=== PATIENT | female | born 1955 | race Caucasian/White ===

== ENCOUNTER → 2016-12-17 | Outpatient (CLI) | payer MEDICARE, MEDICAID ==
[~2016-12-17] MED LIST: ADAL40PE INJ; ADAL40PE SC; CALC500T47 PO; CELE200C PO; CHOL500015 PO; ENOX40SY4 SQ; ETAN50PE SQ; FOLI-17 PO; HYDR-3144 PO; HYDR-3241 PO; METH2.5T PO; METHOT; METO25TA35 PO; PARO30TA3 PO; [UNRECOGNIZED DRUG - REMARK]
== END | disposition home or self-care (01) ==
LOC: CFH 07:18
PROVIDERS: ATTEND Internal Medicine Cardiovascular Disease
DX: I35.1 Nonrheumatic aortic (valve) insufficiency (principal)
CPT/HCPCS: 93306

== ENCOUNTER 2017-03-04 15:04 | Emergency (ER) | payer MEDICARE, MEDICAID ==
[~2017-03-04] VITALS: Ht 162.6 cm; Wt 67.0 kg
[2017-03-04] MEDS ORDERED: CELE200C PO (15:18)
[2017-03-04] MEDS ORDERED: HYDROcodone/APAP 5/325 TABLET ONE (15:51)
[2017-03-04] MEDS ORDERED: HYDROcodone/APAP 5/325 TABLET PO ONE (16:00)
[2017-03-04 17:05] VITALS: BP 132/68
== END 2017-03-04 17:08 | disposition home or self-care (01) ==
LOC: ED 15:28
DX: S89.91XA Unspecified injury of right lower leg, initial encounter (principal); W19.XXXA Unspecified fall, initial encounter; Y93.89 Activity, other specified; Y92.89 Other specified places as the place of occurrence of the external cause; Y99.9 Unspecified external cause status
CPT/HCPCS: 99284

== ENCOUNTER 2017-04-03 18:26 | Inpatient (IN) | payer MEDICARE, MEDICAID ==
[~2017-04-03] VITALS: Ht 162.6 cm; Wt 66.8 kg
[~2017-04-03 18:26] MED LIST changes: -CALC500T47 PO; +CALC500T51 PO; -HYDR-3144 PO; +HYDR-3245 PO
[2017-04-03] MEDS ORDERED: SODIUM CHLORIDE FLUSH 10ML SYR IVF ONE (19:30)
[2017-04-03] MEDS ORDERED: SODIUM CHLORIDE 0.9% 1,000ML IVBOLUS ONE (19:30)
[2017-04-03] MEDS ORDERED: MORPHINE SULFATE 4 MG/ML, 1ML ONE (19:46)
[2017-04-03] MEDS ORDERED: ONDANSETRON 2MG/ML, 2ML ONE (19:46)
[2017-04-03] MEDS ORDERED: OXYcodone/APAP 5/325MG TABLET ONE (19:54)
[2017-04-03] MEDS ORDERED: ONDANSETRON 2MG/ML, 2ML IVPush ONE (20:00)
[2017-04-03] MEDS ORDERED: MORPHINE SULFATE 4 MG/ML, 1ML IVPush ONE (20:00)
[2017-04-03 20:17] LABS: BLOOD UREA NITROGEN 17 mg/dL (7-18)
[2017-04-03 20:18] LABS: HEMATOCRIT 41.7 % (34.6-47.8); WHITE BLOOD COUNT 8.2 x10^3/uL (3.4-10)
[2017-04-03] MEDS ORDERED: OXYcodone/APAP 5/325MG TABLET PO ONE (20:30)
[2017-04-03] MEDS ORDERED: PARO40TA3 PO (20:44)
[2017-04-03] MEDS ORDERED: ONDANSETRON 2MG/ML, 2ML IVPush PRN (22:00)
[2017-04-03 23:51] VITALS: BP 101/65
[2017-04-04] MEDS: ENOXAPARIN 40 MG/0.4 ML SQ SCH ×2 (00:27→06:00)
[2017-04-04] MEDS: OXYcodone/APAP 5/325MG TABLET PO PRN ×4 (00:27→21:33)
[2017-04-04 02:33] VITALS: BP 102/61
[2017-04-04 07:00] VITALS: BP 115/62
[2017-04-04] MEDS: PAROXETINE 20 MG TABLET PO SCH (08:14)
[2017-04-04] MEDS: CALCIUM CARBONATE 500 MG TABLET PO SCH (08:14)
[2017-04-04 13:30] VITALS: BP 112/62
[2017-04-04 21:24] VITALS: BP 123/82
[2017-04-05] MEDS: KETOROLAC 30 MG/1 ML IVPush PRN ×3 (01:19→21:24)
[2017-04-05 03:02] VITALS: BP 106/57
[2017-04-05] MEDS: OXYcodone/APAP 5/325MG TABLET PO PRN ×3 (05:40→16:27)
[2017-04-05] MEDS: ENOXAPARIN 40 MG/0.4 ML SQ SCH (05:40)
[2017-04-05 06:55] VITALS: BP 111/64
[2017-04-05] MEDS: PAROXETINE 20 MG TABLET PO SCH (08:49)
[2017-04-05] MEDS: CALCIUM CARBONATE 500 MG TABLET PO SCH (08:49)
[2017-04-05 14:53] VITALS: BP 81/51
[2017-04-05 15:54] VITALS: BP 88/53
[2017-04-05] MEDS: SODIUM CHLORIDE 0.9% 1,000 ML IV SCH (16:26)
[2017-04-05 19:10] VITALS: BP 90/53
[2017-04-06 02:10] VITALS: BP 122/78
[2017-04-06] MEDS: ACETAMINOPHEN 325 MG TABLET PO PRN (02:22)
[2017-04-06] MEDS: SODIUM CHLORIDE 0.9% 1,000 ML IV SCH ×3 (02:24→23:50)
[2017-04-06] MEDS ORDERED: ZOLPIDEM 10MG TABLET PO PRN (02:30)
[2017-04-06] MEDS: ENOXAPARIN 40 MG/0.4 ML SQ SCH (05:27)
[2017-04-06] MEDS: KETOROLAC 30 MG/1 ML IVPush PRN (05:27)
[2017-04-06] MEDS ORDERED: LEVOTHYROXINE 125 MCG TABLET PO SCH (06:00)
[2017-04-06 06:48] VITALS: BP 127/64
[2017-04-06] MEDS ORDERED: OMEPRAZOLE 20 MG CAPSULE.DR PO SCH (07:30)
[2017-04-06 08:35] LABS: BLOOD UREA NITROGEN 15 mg/dL (7-18)
[2017-04-06 08:50] LABS: HEMATOCRIT 35.5 % (34.6-47.8); HEMOGLOBIN 11.9 g/dL (11.7-16.4); WHITE BLOOD COUNT 7.1 x10^3/uL (3.4-10)
[2017-04-06] MEDS ORDERED: FUROSEMIDE 40 MG TABLET PO SCH (09:00)
[2017-04-06] MEDS ORDERED: LISINOPRIL 10 MG TABLET PO SCH (09:00)
[2017-04-06] MEDS: CALCIUM CARBONATE 500 MG TABLET PO SCH (09:08)
[2017-04-06] MEDS: PAROXETINE 20 MG TABLET PO SCH (09:08)
[2017-04-06] MEDS: OXYcodone/APAP 5/325MG TABLET PO PRN ×3 (09:46→21:07)
[2017-04-06 12:32] VITALS: BP 93/60
[2017-04-06] MEDS ORDERED: POLYETHYLENE GLYCOL 17 GM PACKET PO PRN (13:00)
[2017-04-06] MEDS: DOCUSATE 100 MG CAPSULE PO SCH (14:43)
[2017-04-06 19:15] VITALS: BP 115/76
[2017-04-06] MEDS ORDERED: LOVASTATIN 40 MG TABLET PO SCH (21:00)
[2017-04-07] MEDS: OXYcodone/APAP 5/325MG TABLET PO PRN ×5 (01:06→19:39)
[2017-04-07 01:37] VITALS: BP 129/70
[2017-04-07] MEDS: ENOXAPARIN 40 MG/0.4 ML SQ SCH (05:07)
[2017-04-07 08:00] VITALS: BP 120/71
[2017-04-07] MEDS: DOCUSATE 100 MG CAPSULE PO SCH (10:12)
[2017-04-07] MEDS: CALCIUM CARBONATE 500 MG TABLET PO SCH (10:13)
[2017-04-07] MEDS: PAROXETINE 20 MG TABLET PO SCH (10:13)
[2017-04-07 14:00] VITALS: BP 96/60
[2017-04-07 19:00] VITALS: BP 97/60
[2017-04-07] MEDS: HYDROCORTISONE CRM 1%, 30GM TP SCH (19:39)
[2017-04-07] MEDS ORDERED: HYDROCORTISONE CRM 1%, 30GM TP SCH (21:00)
[2017-04-07] MEDS: TEMAZEPAM 15 MG CAPSULE PO PRN (22:47)
[2017-04-08] MEDS: OXYcodone/APAP 5/325MG TABLET PO PRN ×3 (00:32→22:04)
[2017-04-08 00:40] VITALS: BP 104/65
[2017-04-08] MEDS: KETOROLAC 30 MG/1 ML IVPush PRN (03:15)
[2017-04-08 06:29] VITALS: BP 101/55
[2017-04-08] MEDS: CALCIUM CARBONATE 500 MG TABLET PO SCH (07:55)
[2017-04-08] MEDS: DOCUSATE 100 MG CAPSULE PO SCH (07:55)
[2017-04-08] MEDS: ENOXAPARIN 40 MG/0.4 ML SQ SCH (07:55)
[2017-04-08] MEDS: HYDROCORTISONE CRM 1%, 30GM TP SCH ×2 (07:56→22:04)
[2017-04-08] MEDS: PAROXETINE 20 MG TABLET PO SCH (07:56)
[2017-04-08 14:15] VITALS: BP 91/55
[2017-04-08 19:05] VITALS: BP 108/56
[2017-04-08] MEDS: TEMAZEPAM 15 MG CAPSULE PO PRN (23:55)
[2017-04-09 01:50] VITALS: BP 105/64
[2017-04-09] MEDS: OXYcodone/APAP 5/325MG TABLET PO PRN ×4 (04:19→21:01)
[2017-04-09 07:40] VITALS: BP 99/64
[2017-04-09] MEDS: HYDROCORTISONE CRM 1%, 30GM TP SCH ×2 (09:00→21:01)
[2017-04-09] MEDS: DOCUSATE 100 MG CAPSULE PO SCH (10:34)
[2017-04-09] MEDS: CALCIUM CARBONATE 500 MG TABLET PO SCH (10:35)
[2017-04-09] MEDS: ENOXAPARIN 40 MG/0.4 ML SQ SCH (10:35)
[2017-04-09] MEDS: PAROXETINE 20 MG TABLET PO SCH (10:37)
[2017-04-09] MEDS ORDERED: ENOX40SY4 SQ (10:59)
[2017-04-09] MEDS ORDERED: CYCL5TAB PO (11:07)
[2017-04-09 13:54] VITALS: BP 98/62
[2017-04-09 19:13] VITALS: BP 102/71
[2017-04-10] MEDS: CYCLOBENZAPRINE 10 MG TABLET PO PRN ×2 (01:13→11:01)
[2017-04-10 02:05] VITALS: BP 118/67
[2017-04-10] MEDS: OXYcodone/APAP 5/325MG TABLET PO PRN ×5 (02:14→21:17)
[2017-04-10] MEDS: TEMAZEPAM 15 MG CAPSULE PO PRN ×2 (02:14→21:16)
[2017-04-10 08:25] VITALS: BP 122/73
[2017-04-10] MEDS: HYDROCORTISONE CRM 1%, 30GM TP SCH ×2 (09:00→21:17)
[2017-04-10] MEDS: PAROXETINE 20 MG TABLET PO SCH (09:00)
[2017-04-10] MEDS: DOCUSATE 100 MG CAPSULE PO SCH (11:02)
[2017-04-10] MEDS: ENOXAPARIN 40 MG/0.4 ML SQ SCH (11:03)
[2017-04-10] MEDS: CALCIUM CARBONATE 500 MG TABLET PO SCH (11:03)
[2017-04-10 13:41] VITALS: BP 117/68
[2017-04-10 19:07] VITALS: BP 117/73
[2017-04-11 01:45] VITALS: BP 102/66
[2017-04-11] MEDS: OXYcodone/APAP 5/325MG TABLET PO PRN ×4 (05:01→21:41)
[2017-04-11 07:42] VITALS: BP 102/60
[2017-04-11] MEDS: DOCUSATE 100 MG CAPSULE PO SCH (08:31)
[2017-04-11] MEDS: CALCIUM CARBONATE 500 MG TABLET PO SCH (08:31)
[2017-04-11] MEDS: ENOXAPARIN 40 MG/0.4 ML SQ SCH (08:32)
[2017-04-11] MEDS: FOLIC ACID 1 MG TABLET PO SCH (08:32)
[2017-04-11] MEDS: PAROXETINE 20 MG TABLET PO SCH (08:40)
[2017-04-11] MEDS: HYDROCORTISONE CRM 1%, 30GM TP SCH ×2 (09:25→21:00)
[2017-04-11 13:54] VITALS: BP 102/68
[2017-04-11] MEDS: ACETAMINOPHEN 325 MG TABLET PO PRN (16:50)
[2017-04-11] MEDS ORDERED: ACETAMINOPHEN 325 MG TABLET PO PRN (20:00)
[2017-04-11] MEDS ORDERED: ONDANSETRON 2MG/ML, 2ML IVPush PRN (20:00)
[2017-04-11] MEDS ORDERED: CYCLOBENZAPRINE 10 MG TABLET PO PRN (20:00)
[2017-04-11] MEDS ORDERED: POLYETHYLENE GLYCOL 17 GM PACKET PO PRN (20:00)
[2017-04-11] MEDS ORDERED: TEMAZEPAM 15 MG CAPSULE PO PRN (20:00)
[2017-04-11 20:14] VITALS: BP 105/62
[2017-04-12 01:47] VITALS: BP 108/70
[2017-04-12] MEDS: OXYcodone/APAP 5/325MG TABLET PO PRN ×4 (04:08→17:28)
[2017-04-12 06:05] LABS: HEMATOCRIT 34.9 % (34.6-47.8); HEMOGLOBIN 11.6 g/dL (11.7-16.4); WHITE BLOOD COUNT 6.7 x10^3/uL (3.4-10)
[2017-04-12 06:37] LABS: ASPARTATE AMINO TRANSFERASE 27 U/L (15-37); BLOOD UREA NITROGEN 27 mg/dL (7-18)
[2017-04-12 07:46] VITALS: BP 101/64
[2017-04-12] MEDS: DOCUSATE 100 MG CAPSULE PO SCH (08:55)
[2017-04-12] MEDS: CALCIUM CARBONATE 500 MG TABLET PO SCH (08:55)
[2017-04-12] MEDS: PAROXETINE 20 MG TABLET PO SCH (08:55)
[2017-04-12] MEDS: FOLIC ACID 1 MG TABLET PO SCH (08:55)
[2017-04-12] MEDS: ENOXAPARIN 40 MG/0.4 ML SQ SCH (08:56)
[2017-04-12] MEDS: HYDROCORTISONE CRM 1%, 30GM TP SCH ×2 (09:00→19:46)
[2017-04-12] MEDS: CIPROFLOXACIN/HYDROCORTISONE EAR SUSP 0.2-1%, 10ML RIGHT EAR SCH ×2 (09:00→19:46)
[2017-04-12 14:30] VITALS: BP 106/60
[2017-04-12 19:27] VITALS: BP 110/72
[2017-04-13 00:52] LABS: PATH.CAST-FLAG NOT PRESENT; SPERM-FLAG NOT PRESENT; SRC-FLAG NOT PRESENT; XTAL-FLAG NOT PRESENT; YLC-FLAG NOT PRESENT
[2017-04-13] MEDS: OXYcodone/APAP 5/325MG TABLET PO PRN ×3 (01:25→11:30)
[2017-04-13 01:36] VITALS: BP 112/65
[2017-04-13 06:51] VITALS: BP 125/76
[2017-04-13] MEDS: HYDROCORTISONE CRM 1%, 30GM TP SCH ×2 (09:00→09:15)
[2017-04-13] MEDS: CALCIUM CARBONATE 500 MG TABLET PO SCH (09:11)
[2017-04-13] MEDS: PAROXETINE 20 MG TABLET PO SCH (09:11)
[2017-04-13] MEDS: FOLIC ACID 1 MG TABLET PO SCH (09:12)
[2017-04-13] MEDS: DOCUSATE 100 MG CAPSULE PO SCH (09:13)
[2017-04-13] MEDS: ENOXAPARIN 40 MG/0.4 ML SQ SCH (09:14)
[2017-04-13] MEDS ORDERED: CIPR10DR RIGHT EAR (09:17)
[2017-04-13] MEDS ORDERED: CYCL-259 PO (09:17)
[2017-04-13] MEDS ORDERED: PNEUMOCOCCAL VACC.PER PHARMACY IM ONE (10:30)
[2017-04-13] MEDS ORDERED: PNEUMOCOCCAL 23 VACCINE IM-VACC ONE (10:30)
[2017-04-13] MEDS ORDERED: FLU VACC QS2017-18 (36MOS+) UP/PF 0.5 ML IM-VACC ONE (10:30)
[2017-04-13] MEDS: CIPROFLOXACIN/HYDROCORTISONE EAR SUSP 0.2-1%, 10ML RIGHT EAR SCH (11:30)
== END 2017-04-13 14:57 | DRG 545 ==
LOC: ED 20:52 → EDIP 21:11 → 3NE 22:45
PROVIDERS: ADMIT Internal Medicine; ATTEND Internal Medicine
DX: M06.261 Rheumatoid bursitis, right knee (principal); E43 Unspecified severe protein-calorie malnutrition; E87.1 Hypo-osmolality and hyponatremia; T84.030A Mechanical loosening of internal right hip prosthetic joint, initial encounter; W19.XXXA Unspecified fall, initial encounter; Z68.25 Body mass index [BMI] 25.0-25.9, adult; Z88.6 Allergy status to analgesic agent; Z88.0 Allergy status to penicillin; Z88.8 Allergy status to other drugs, medicaments and biological substances; D75.89 Other specified diseases of blood and blood-forming organs; F32.9 Major depressive disorder, single episode, unspecified; G89.29 Other chronic pain; H60.90 Unspecified otitis externa, unspecified ear; M71.20 Synovial cyst of popliteal space [Baker], unspecified knee; R29.6 Repeated falls; R62.7 Adult failure to thrive; Y93.89 Activity, other specified; Y92.89 Other specified places as the place of occurrence of the external cause; Y99.8 Other external cause status; Z88.5 Allergy status to narcotic agent; Z96.641 Presence of right artificial hip joint; M17.11 Unilateral primary osteoarthritis, right knee; H61.23 Impacted cerumen, bilateral; M62.838 Other muscle spasm; M25.461 Effusion, right knee
CPT/HCPCS: 36415; 80048; 80053; 81001; 82040; 83735; 84100; 85025; 90732; 93005; 99285; J1650; J1885; J7030

== ENCOUNTER 2017-06-30 21:26 | Inpatient (IN) | payer MEDICARE, MEDICAID ==
[~2017-06-30] VITALS: Ht 154.9 cm; Wt 62.5 kg
[~2017-06-30 21:26] MED LIST changes: +CIPR10DR RIGHT EAR; +CYCL-259 PO; +CYCL5TAB PO; +PARO40TA3 PO
[2017-06-30] MEDS ORDERED: HYDROmorphone 1 MG/ML, 1ML IVPush PRN (22:30)
[2017-06-30] MEDS ORDERED: ONDANSETRON 2MG/ML, 2ML IVPush ONE (22:30)
[2017-06-30] MEDS ORDERED: ONDANSETRON 2MG/ML, 2ML ONE (22:50)
[2017-06-30] MEDS ORDERED: HYDROmorphone 2 MG/ML, 1ML ONE (22:50)
[2017-06-30] MEDS ORDERED: SODIUM CHLORIDE 0.9% 1,000 ML IV ONE (23:25)
[2017-06-30] MEDS ORDERED: HYDROmorphone 2 MG/ML, 1ML IVPush PRN (23:30)
[2017-06-30] MEDS ORDERED: ONDANSETRON 2MG/ML, 2ML IVPush PRN (23:30)
[2017-06-30] MEDS: SODIUM CHLORIDE 0.9% 1,000 ML IV SCH (23:44)
[2017-07-01] MEDS ORDERED: ONDANSETRON 2MG/ML, 2ML IVPush PRN
[2017-07-01] MEDS ORDERED: BISACODYL 10 MG SUPP PR PRN
[2017-07-01] MEDS ORDERED: hydrALAzine 20 MG/ML, 1ML IVPush PRN
[2017-07-01 00:47] VITALS: BP 104/66
[2017-07-01 01:10] VITALS: BP 104/66
[2017-07-01] MEDS: HEPARIN 5,000 UNITS/ML, 1ML SQ SCH ×3 (03:49→21:20)
[2017-07-01] MEDS: SODIUM CHLORIDE 0.9% 1,000 ML IV SCH ×2 (06:46→19:30)
[2017-07-01 07:24] VITALS: BP 122/75
[2017-07-01] MEDS: LACTULOSE 10 GM/15 ML UDC PO SCH ×2 (08:50→21:20)
[2017-07-01] MEDS: FOLIC ACID 1 MG TABLET PO SCH (08:50)
[2017-07-01] MEDS: PAROXETINE 20 MG TABLET PO SCH (08:50)
[2017-07-01] MEDS: CALCIUM CARBONATE 500 MG TAB.CHEW PO SCH (08:51)
[2017-07-01 13:00] VITALS: BP 132/77
[2017-07-01] MEDS: ACETAMINOPHEN 325 MG TABLET PO PRN (15:09)
[2017-07-01] MEDS: methylPREDNISolone SOD SUCC 40 MG/ML IV SCH (16:43)
[2017-07-01 20:00] VITALS: BP 118/66
[2017-07-02 01:49] VITALS: BP 126/80
[2017-07-02] MEDS: methylPREDNISolone SOD SUCC 40 MG/ML IV SCH ×2 (04:43→16:45)
[2017-07-02] MEDS: HEPARIN 5,000 UNITS/ML, 1ML SQ SCH ×3 (05:01→22:54)
[2017-07-02 05:03] LABS: BASOPHILS # (AUTO) 0.01 x10^3/uL (0-0.1); BASOPHILS % (AUTO) 0 % (0-1); EOSINOPHILS % (AUTO) 0 % (1-7); LYMPHOCYTES # (AUTO) 1.11 x10^3/uL (1-3.4); LYMPHOCYTES % (AUTO) 26 % (22-44); MD NO; MEAN CORPUSCULAR HEMOGLOBIN 30.5 pg (27.0-34.8); MEAN CORPUSCULAR HGB CONC 34.2 g/dL (32.4-35.8); MEAN CORPUSCULAR VOLUME 89.1 fL (80-100); MONOCYTES # (AUTO) 0.23 x10^3/uL (0.2-0.8); MONOCYTES % (AUTO) 5 % (2-9); NEUTROPHILS # (AUTO) 2.86 x10^3/uL (1.8-6.8); NEUTROPHILS % (AUTO) 68 % (42-75); PLATELET COUNT 391 x10^3/uL (130-400); RED BLOOD COUNT 4.08 x10^6/uL (3.82-5.3); RED CELL DISTRIBUTION WIDTH 17.1 % (9.6-15.2)
[2017-07-02 05:11] LABS: CHLORIDE 106 mmol/L (98-107)
[2017-07-02 05:23] LABS: ALANINE AMINOTRANSFERASE 15 U/L (12-78); ALBUMIN 2.6 g/dL (3.4-5.0); ALKALINE PHOSPHATASE 83 U/L (45-117); ANION GAP 6 mmol/L (5-15); BILIRUBIN,TOTAL 0.5 mg/dL (0.2-1.0); CALCIUM 8.3 mg/dL (8.5-10.1); TOTAL PROTEIN 8.3 g/dL (6.4-8.2)
[2017-07-02 08:44] VITALS: BP 117/68
[2017-07-02] MEDS: PAROXETINE 20 MG TABLET PO SCH (10:58)
[2017-07-02] MEDS: FOLIC ACID 1 MG TABLET PO SCH (10:58)
[2017-07-02] MEDS: LACTULOSE 10 GM/15 ML UDC PO SCH ×2 (10:58→21:08)
[2017-07-02] MEDS: CALCIUM CARBONATE 500 MG TAB.CHEW PO SCH (10:59)
[2017-07-02 13:16] VITALS: BP 116/69
[2017-07-02] MEDS: ACETAMINOPHEN 325 MG TABLET PO PRN (14:23)
[2017-07-02] MEDS: SODIUM CHLORIDE 0.9% 1,000 ML IV SCH (16:46)
[2017-07-02 18:25] VITALS: BP 112/65
[2017-07-03 02:01] VITALS: BP 127/63
[2017-07-03] MEDS: methylPREDNISolone SOD SUCC 40 MG/ML IV SCH ×2 (04:38→16:49)
[2017-07-03] MEDS: SODIUM CHLORIDE 0.9% 1,000 ML IV SCH ×2 (04:38→12:35)
[2017-07-03] MEDS: HEPARIN 5,000 UNITS/ML, 1ML SQ SCH ×3 (06:36→22:07)
[2017-07-03 06:52] VITALS: BP 124/74
[2017-07-03] MEDS: LACTULOSE 10 GM/15 ML UDC PO SCH ×2 (08:40→20:26)
[2017-07-03] MEDS: FOLIC ACID 1 MG TABLET PO SCH (08:40)
[2017-07-03] MEDS: PAROXETINE 20 MG TABLET PO SCH (08:40)
[2017-07-03] MEDS: CALCIUM CARBONATE 500 MG TAB.CHEW PO SCH ×2 (09:00→10:24)
[2017-07-03 13:01] VITALS: BP 129/72
[2017-07-03 20:28] VITALS: BP 124/70
[2017-07-03] MEDS: ACETAMINOPHEN 325 MG TABLET PO PRN (22:07)
[2017-07-04] MEDS: SODIUM CHLORIDE 0.9% 1,000 ML IV SCH (01:37)
[2017-07-04 01:39] VITALS: BP 136/73
[2017-07-04] MEDS: DIPHENHYDRAMINE 50 MG/ML, 1ML IVPush PRN (02:09)
[2017-07-04] MEDS: methylPREDNISolone SOD SUCC 40 MG/ML IV SCH ×2 (05:10→16:16)
[2017-07-04] MEDS: HEPARIN 5,000 UNITS/ML, 1ML SQ SCH ×3 (06:14→22:48)
[2017-07-04 06:46] VITALS: BP 159/78
[2017-07-04] MEDS: CALCIUM CARBONATE 500 MG TAB.CHEW PO SCH (07:06)
[2017-07-04] MEDS: FOLIC ACID 1 MG TABLET PO SCH (07:07)
[2017-07-04] MEDS: PAROXETINE 20 MG TABLET PO SCH (07:07)
[2017-07-04] MEDS: LACTULOSE 10 GM/15 ML UDC PO SCH ×2 (07:07→21:00)
[2017-07-04 12:46] VITALS: BP 129/74
[2017-07-04 18:45] VITALS: BP 153/77
[2017-07-04] MEDS: ACETAMINOPHEN 325 MG TABLET PO PRN (22:51)
[2017-07-05] MEDS: DIPHENHYDRAMINE 50 MG/ML, 1ML IVPush PRN (02:47)
[2017-07-05 03:41] VITALS: BP 160/77
[2017-07-05] MEDS: methylPREDNISolone SOD SUCC 40 MG/ML IV SCH (04:20)
[2017-07-05 05:48] LABS: CHLORIDE 106 mmol/L (98-107)
[2017-07-05 05:55] LABS: BASOPHILS # (AUTO) 0.05 x10^3/uL (0-0.1); BASOPHILS % (AUTO) 1 % (0-1); EOSINOPHILS % (AUTO) 0 % (1-7); LYMPHOCYTES % (AUTO) 33 % (22-44); MD NO; MEAN CORPUSCULAR HEMOGLOBIN 30.2 pg (27.0-34.8); MEAN CORPUSCULAR HGB CONC 33.4 g/dL (32.4-35.8); MEAN CORPUSCULAR VOLUME 90.4 fL (80-100); MEAN PLATELET VOLUME 7.7 fL (7.4-10.4); MONOCYTES # (AUTO) 0.65 x10^3/uL (0.2-0.8); MONOCYTES % (AUTO) 6 % (2-9); NEUTROPHILS # (AUTO) 6.14 x10^3/uL (1.8-6.8); NEUTROPHILS % (AUTO) 61 % (42-75); PLATELET COUNT 435 x10^3/uL (130-400); RED BLOOD COUNT 4.44 x10^6/uL (3.82-5.3); RED CELL DISTRIBUTION WIDTH 16.9 % (9.6-15.2)
[2017-07-05 05:58] LABS: ALANINE AMINOTRANSFERASE 29 U/L (12-78); ALBUMIN 2.9 g/dL (3.4-5.0); ALKALINE PHOSPHATASE 88 U/L (45-117); ANION GAP 7 mmol/L (5-15); BILIRUBIN,TOTAL 0.4 mg/dL (0.2-1.0); CALCIUM 8.5 mg/dL (8.5-10.1); CREATININE 0.54 mg/dL (0.55-1.02); TOTAL PROTEIN 8.7 g/dL (6.4-8.2)
[2017-07-05] MEDS: HEPARIN 5,000 UNITS/ML, 1ML SQ SCH ×3 (06:10→21:22)
[2017-07-05 06:12] LABS: HCT (SEDRATE) 40.2 % (34.6-47.8)
[2017-07-05 06:35] VITALS: BP 127/67
[2017-07-05] MEDS: FOLIC ACID 1 MG TABLET PO SCH (08:36)
[2017-07-05] MEDS: PAROXETINE 20 MG TABLET PO SCH (08:36)
[2017-07-05] MEDS: CALCIUM CARBONATE 500 MG TAB.CHEW PO SCH (08:36)
[2017-07-05] MEDS: LACTULOSE 10 GM/15 ML UDC PO SCH ×2 (08:36→21:22)
[2017-07-05 13:32] VITALS: BP 137/79
[2017-07-05 20:24] VITALS: BP 116/72
[2017-07-06 01:35] VITALS: BP 143/72
[2017-07-06] MEDS: ACETAMINOPHEN 325 MG TABLET PO PRN (04:34)
[2017-07-06] MEDS: HEPARIN 5,000 UNITS/ML, 1ML SQ SCH ×2 (06:19→16:56)
[2017-07-06 07:14] VITALS: BP 121/74
[2017-07-06] MEDS: FOLIC ACID 1 MG TABLET PO SCH (11:12)
[2017-07-06] MEDS: PAROXETINE 20 MG TABLET PO SCH (11:13)
[2017-07-06] MEDS: CALCIUM CARBONATE 500 MG TAB.CHEW PO SCH (11:13)
[2017-07-06] MEDS: LACTULOSE 10 GM/15 ML UDC PO SCH (11:14)
[2017-07-06] MEDS ORDERED: METH4TAB PO (11:33)
[2017-07-06 12:19] VITALS: BP 130/82
== END 2017-07-06 17:25 | DRG 546 ==
LOC: ED 23:20 → EDIP 23:25 → ED 23:26 → 4NOR 07-01 00:28
PROVIDERS: ADMIT Hospitalist; ATTEND Hospitalist
DX: M06.862 Other specified rheumatoid arthritis, left knee (principal); E44.1 Mild protein-calorie malnutrition; G89.29 Other chronic pain; L40.50 Arthropathic psoriasis, unspecified; Z68.26 Body mass index [BMI] 26.0-26.9, adult; F32.9 Major depressive disorder, single episode, unspecified; M06.9 Rheumatoid arthritis, unspecified; M06.861 Other specified rheumatoid arthritis, right knee; M06.812 Other specified rheumatoid arthritis, left shoulder; M06.811 Other specified rheumatoid arthritis, right shoulder; Z88.0 Allergy status to penicillin; Z88.5 Allergy status to narcotic agent; Z88.8 Allergy status to other drugs, medicaments and biological substances
CPT/HCPCS: 36415; 80053; 85025; 85651; 86140; 96374; 96375; J1170; J1644; J2405; J7509; J1200; J2920; J7030

== ENCOUNTER 2017-08-05 17:37 | Inpatient (IN) | payer MEDICARE, MEDICAID ==
[~2017-08-05] VITALS: Ht 162.6 cm; Wt 67.3 kg
[~2017-08-05 17:37] MED LIST changes: +METH4TAB PO
[2017-08-05] MEDS ORDERED: ONDANSETRON 2MG/ML, 2ML ONE (17:53)
[2017-08-05 18:00] LABS: BASOPHILS # (AUTO) 0.02 x10^3/uL (0-0.1); BASOPHILS % (AUTO) 0 % (0-1); EOSINOPHILS # (AUTO) 0.08 x10^3/uL (0-0.4); EOSINOPHILS % (AUTO) 1 % (1-7); LYMPHOCYTES # (AUTO) 2.43 x10^3/uL (1-3.4); LYMPHOCYTES % (AUTO) 29 % (22-44); MD NO; MEAN CORPUSCULAR HEMOGLOBIN 30.1 pg (27.0-34.8); MEAN CORPUSCULAR HGB CONC 33.7 g/dL (32.4-35.8); MEAN CORPUSCULAR VOLUME 89.4 fL (80-100); MEAN PLATELET VOLUME 6.8 fL (7.4-10.4); MONOCYTES # (AUTO) 0.86 x10^3/uL (0.2-0.8); MONOCYTES % (AUTO) 10 % (2-9); NEUTROPHILS # (AUTO) 4.91 x10^3/uL (1.8-6.8); NEUTROPHILS % (AUTO) 59 % (42-75); PLATELET COUNT 366 x10^3/uL (130-400); RED BLOOD COUNT 4.67 x10^6/uL (3.82-5.3); RED CELL DISTRIBUTION WIDTH 15.6 % (9.6-15.2)
[2017-08-05] MEDS ORDERED: SODIUM CHLORIDE 0.9% 1,000ML IVBOLUS ONE (18:00)
[2017-08-05 18:07] LABS: ALANINE AMINOTRANSFERASE 34 U/L (12-78); ALBUMIN 3.4 g/dL (3.4-5.0); ANION GAP 9 mmol/L (5-15); CALCIUM 7.8 mg/dL (8.5-10.1); CHLORIDE 91 mmol/L (98-107); CREATININE 0.58 mg/dL (0.55-1.02)
[2017-08-05 18:10] LABS: ALKALINE PHOSPHATASE 79 U/L (45-117); BILIRUBIN,TOTAL 1.1 mg/dL (0.2-1.0); TOTAL PROTEIN 8.3 g/dL (6.4-8.2)
[2017-08-05] MEDS ORDERED: TRAZ100T15 PO (18:12)
[2017-08-05] MEDS ORDERED: [UNRECOGNIZED DRUG - REMARK] PO (18:13)
[2017-08-05] MEDS ORDERED: ONDANSETRON 2MG/ML, 2ML IVPush ONE (18:30)
[2017-08-05] MEDS ORDERED: PROMETHAZINE 25 MG/ML, 1ML IM ONE (19:30)
[2017-08-05 19:56] LABS: MICROSCOPIC AUTO
[2017-08-05 19:59] LABS: CULTURE INDICATED? YES
[2017-08-05] MEDS ORDERED: SODIUM CHLORIDE 0.9% 1,000 ML IV SCH (20:00)
[2017-08-05 20:58] VITALS: BP 120/70
[2017-08-05 21:00] VITALS: BP 120/70
[2017-08-05] MEDS ORDERED: PROMETHAZINE 25 MG/ML, 1ML IM PRN (21:00)
[2017-08-05] MEDS ORDERED: DOCUSATE 100 MG CAPSULE PO PRN (21:00)
[2017-08-05] MEDS ORDERED: ENALAPRILAT 1.25 MG/ML, 2ML IVPush PRN (21:00)
[2017-08-05] MEDS ORDERED: ONDANSETRON 2MG/ML, 2ML IVPush PRN (21:00)
[2017-08-05 22:02] VITALS: BP 120/70
[2017-08-05] MEDS ORDERED: ACETAMINOPHEN 325 MG TABLET PO PRN (23:00)
[2017-08-05] MEDS: SODIUM CHLORIDE 0.9% 1,000 ML IV SCH (23:23)
[2017-08-05] MEDS: ENOXAPARIN 40 MG/0.4 ML SQ SCH (23:23)
[2017-08-05] MEDS: TRAZODONE 100MG TABLET PO SCH (23:23)
[2017-08-06 00:58] LABS: ANION GAP 6 mmol/L (5-15); CALCIUM 7.7 mg/dL (8.5-10.1); CHLORIDE 103 mmol/L (98-107)
[2017-08-06 00:59] LABS: CREATININE 0.49 mg/dL (0.55-1.02)
[2017-08-06 03:18] VITALS: BP 95/59
[2017-08-06 06:11] LABS: ANION GAP 7 mmol/L (5-15); CALCIUM 7.4 mg/dL (8.5-10.1); CHLORIDE 109 mmol/L (98-107); CREATININE 0.48 mg/dL (0.55-1.02)
[2017-08-06] MEDS: SODIUM CHLORIDE 0.9% 1,000 ML IV SCH (06:54)
[2017-08-06 07:34] VITALS: BP 109/67
[2017-08-06] MEDS: PAROXETINE 20 MG TABLET PO SCH (08:06)
[2017-08-06] MEDS: CALCIUM CARBONATE 500 MG TABLET PO SCH (08:06)
[2017-08-06] MEDS ORDERED: [UNRECOGNIZED DRUG - OTHER] PO SCH (09:00)
[2017-08-06 12:35] VITALS: BP 112/66
[2017-08-06 12:57] LABS: ANION GAP 5 mmol/L (5-15); CALCIUM 8.2 mg/dL (8.5-10.1); CHLORIDE 111 mmol/L (98-107)
[2017-08-06 16:14] LABS: ANION GAP 8 mmol/L (5-15); CALCIUM 7.9 mg/dL (8.5-10.1); CHLORIDE 108 mmol/L (98-107); CREATININE 0.57 mg/dL (0.55-1.02)
[2017-08-06 19:03] VITALS: BP 90/54
[2017-08-06] MEDS: ENOXAPARIN 40 MG/0.4 ML SQ SCH (20:53)
[2017-08-06] MEDS: TRAZODONE 100MG TABLET PO SCH (20:53)
[2017-08-07 02:25] VITALS: BP 88/53
[2017-08-07 07:37] VITALS: BP 119/71
[2017-08-07] MEDS: PAROXETINE 20 MG TABLET PO SCH (07:59)
[2017-08-07] MEDS: CALCIUM CARBONATE 500 MG TABLET PO SCH (07:59)
[2017-08-07] MEDS ORDERED: POTASSIUM CHLORIDE 20 MEQ TAB.ER.PRT PO ONE (08:30)
== END 2017-08-07 13:13 | disposition home or self-care (01) | DRG 372 ==
LOC: ED 20:35 → 3NE 20:52
PROVIDERS: ADMIT Hospitalist; ATTEND Hospitalist
DX: A04.72 Enterocolitis due to Clostridium difficile, not specified as recurrent (principal); E87.1 Hypo-osmolality and hyponatremia; F33.1 Major depressive disorder, recurrent, moderate; L40.50 Arthropathic psoriasis, unspecified; E86.0 Dehydration; E87.6 Hypokalemia; I10 Essential (primary) hypertension; M06.9 Rheumatoid arthritis, unspecified; Z88.6 Allergy status to analgesic agent; Z88.0 Allergy status to penicillin; Z88.8 Allergy status to other drugs, medicaments and biological substances; Z86.73 Personal history of transient ischemic attack (TIA), and cerebral infarction without residual deficits; Z87.891 Personal history of nicotine dependence; Z90.710 Acquired absence of both cervix and uterus
CPT/HCPCS: 36415; 71045; 80048; 80053; 81001; 83690; 85025; 87086; 96361; 96374; J1650; J2405; J7030

== ENCOUNTER 2018-06-10 15:08 | Inpatient (IN) | payer MEDICARE, MEDICAID ==
[~2018-06-10] VITALS: Ht 162.6 cm; Wt 71.0 kg
[~2018-06-10 15:08] MED LIST changes: +TRAZ-137 PO; +[UNRECOGNIZED DRUG - REMARK] PO
[2018-06-10] MEDS ORDERED: ADAL20KI SQ (15:49)
[2018-06-10] MEDS ORDERED: OXYcodone/APAP 10/325MG TABLET ONE (15:59)
[2018-06-10] MEDS ORDERED: OXYcodone/APAP 10/325MG TABLET PO ONE (16:00)
[2018-06-10 16:11] LABS: BASOPHILS # (AUTO) 0.04 x10^3/uL (0-0.1); BASOPHILS % (AUTO) 1 % (0-1); EOSINOPHILS # (AUTO) 0.22 x10^3/uL (0-0.4); EOSINOPHILS % (AUTO) 3 % (1-7); LYMPHOCYTES # (AUTO) 1.82 x10^3/uL (1-3.4); LYMPHOCYTES % (AUTO) 23 % (22-44); MD NO; MEAN CORPUSCULAR HEMOGLOBIN 29.1 pg (27.0-34.8); MEAN CORPUSCULAR HGB CONC 33.3 g/dL (32.4-35.8); MEAN CORPUSCULAR VOLUME 87.6 fL (80-100); MEAN PLATELET VOLUME 7.2 fL (7.4-10.4); MONOCYTES # (AUTO) 0.59 x10^3/uL (0.2-0.8); MONOCYTES % (AUTO) 8 % (2-9); NEUTROPHILS # (AUTO) 5.11 x10^3/uL (1.8-6.8); NEUTROPHILS % (AUTO) 66 % (42-75); PLATELET COUNT 464 x10^3/uL (130-400); RED CELL DISTRIBUTION WIDTH 15.6 % (9.6-15.2)
[2018-06-10 16:18] LABS: ALBUMIN 2.7 g/dL (3.4-5.0); ANION GAP 8 mmol/L (5-15); CALCIUM 8.6 mg/dL (8.5-10.1); CHLORIDE 103 mmol/L (98-107); CREATININE 0.74 mg/dL (0.55-1.02)
[2018-06-10] MEDS ORDERED: POLYETHYLENE GLYCOL 17 GM PACKET PO PRN (19:30)
[2018-06-10] MEDS ORDERED: BISACODYL 10 MG SUPP PR PRN (19:30)
[2018-06-10] MEDS ORDERED: ONDANSETRON ODT 4 MG PO PRN (19:30)
[2018-06-10 19:40] VITALS: BP 92/60
[2018-06-10 20:00] VITALS: BP 92/60
[2018-06-10] MEDS ORDERED: METH2.5T PO (21:21)
[2018-06-10] MEDS: SODIUM CHLORIDE FLUSH 10ML SYR IVF SCH (21:53)
[2018-06-10] MEDS: HEPARIN 5,000 UNITS/ML, 1ML SQ SCH (21:53)
[2018-06-10] MEDS: TRAZODONE 100MG TABLET PO SCH (21:53)
[2018-06-10] MEDS ORDERED: METHOTREXATE 2.5 MG TABLET PO SCH (22:30)
[2018-06-11 01:45] VITALS: BP 111/68
[2018-06-11] MEDS: HEPARIN 5,000 UNITS/ML, 1ML SQ SCH ×3 (03:41→19:23)
[2018-06-11 05:40] LABS: BASOPHILS # (AUTO) 0.03 x10^3/uL (0-0.1); BASOPHILS % (AUTO) 1 % (0-1); EOSINOPHILS # (AUTO) 0.24 x10^3/uL (0-0.4); EOSINOPHILS % (AUTO) 4 % (1-7); LYMPHOCYTES # (AUTO) 1.76 x10^3/uL (1-3.4); LYMPHOCYTES % (AUTO) 30 % (22-44); MD NO; MEAN CORPUSCULAR HEMOGLOBIN 29.2 pg (27.0-34.8); MEAN CORPUSCULAR HGB CONC 33.5 g/dL (32.4-35.8); MEAN CORPUSCULAR VOLUME 87.2 fL (80-100); MEAN PLATELET VOLUME 7.2 fL (7.4-10.4); MONOCYTES # (AUTO) 0.37 x10^3/uL (0.2-0.8); MONOCYTES % (AUTO) 6 % (2-9); NEUTROPHILS # (AUTO) 3.39 x10^3/uL (1.8-6.8); NEUTROPHILS % (AUTO) 59 % (42-75); PLATELET COUNT 414 x10^3/uL (130-400); RED BLOOD COUNT 3.97 x10^6/uL (3.82-5.3); RED CELL DISTRIBUTION WIDTH 15.3 % (9.6-15.2)
[2018-06-11 05:41] LABS: CHLORIDE 108 mmol/L (98-107)
[2018-06-11 05:51] LABS: ALANINE AMINOTRANSFERASE 18 U/L (12-78); ALBUMIN 2.7 g/dL (3.4-5.0); ALKALINE PHOSPHATASE 88 U/L (45-117); BILIRUBIN,TOTAL 0.4 mg/dL (0.2-1.0); CALCIUM 8.5 mg/dL (8.5-10.1); CREATININE 0.63 mg/dL (0.55-1.02); TOTAL PROTEIN 8.3 g/dL (6.4-8.2)
[2018-06-11 06:00] LABS: ANION GAP 5 mmol/L (5-15)
[2018-06-11 08:00] VITALS: BP 113/56
[2018-06-11] MEDS: SODIUM CHLORIDE FLUSH 10ML SYR IVF SCH ×2 (09:00→19:24)
[2018-06-11] MEDS: FOLIC ACID 1 MG TABLET PO SCH (09:09)
[2018-06-11] MEDS: CALCIUM CARBONATE 500 MG TABLET PO SCH (09:10)
[2018-06-11] MEDS: PAROXETINE 20 MG TABLET PO SCH (09:13)
[2018-06-11] MEDS: SENNA/DOCUSATE TABLET PO SCH (09:16)
[2018-06-11] MEDS: GABAPENTIN 100 MG CAPSULE PO SCH ×3 (12:20→19:23)
[2018-06-11 14:00] VITALS: BP 109/59
[2018-06-11 18:50] VITALS: BP 96/62
[2018-06-11] MEDS: TRAZODONE 100MG TABLET PO SCH (19:23)
[2018-06-12 01:48] VITALS: BP 96/59
[2018-06-12] MEDS: HEPARIN 5,000 UNITS/ML, 1ML SQ SCH ×3 (03:34→19:43)
[2018-06-12] MEDS: GABAPENTIN 100 MG CAPSULE PO SCH ×4 (06:07→19:43)
[2018-06-12 07:26] VITALS: BP 121/54
[2018-06-12] MEDS: CALCIUM CARBONATE 500 MG TABLET PO SCH (08:04)
[2018-06-12] MEDS: SODIUM CHLORIDE FLUSH 10ML SYR IVF SCH ×2 (08:04→21:00)
[2018-06-12] MEDS: FOLIC ACID 1 MG TABLET PO SCH (08:04)
[2018-06-12] MEDS: PAROXETINE 20 MG TABLET PO SCH (08:04)
[2018-06-12] MEDS: SENNA/DOCUSATE TABLET PO SCH (08:05)
[2018-06-12] MEDS: ACETAMINOPHEN 325 MG TABLET PO PRN (08:05)
[2018-06-12] MEDS: SULFAMETH./TRIMETHOPRIM DS 800MG/160MG TABLET PO SCH ×2 (11:21→19:43)
[2018-06-12 13:03] VITALS: BP 96/66
[2018-06-12 19:31] VITALS: BP 113/56
[2018-06-12] MEDS: TRAZODONE 100MG TABLET PO SCH (19:43)
[2018-06-13 01:42] VITALS: BP 100/61
[2018-06-13] MEDS: HEPARIN 5,000 UNITS/ML, 1ML SQ SCH ×3 (03:35→19:51)
[2018-06-13 05:00] LABS: BASOPHILS # (AUTO) 0.01 x10^3/uL (0-0.1); BASOPHILS % (AUTO) 0 % (0-1); EOSINOPHILS # (AUTO) 0.19 x10^3/uL (0-0.4); EOSINOPHILS % (AUTO) 4 % (1-7); LYMPHOCYTES # (AUTO) 1.87 x10^3/uL (1-3.4); LYMPHOCYTES % (AUTO) 38 % (22-44); MD NO; MEAN CORPUSCULAR HEMOGLOBIN 29.4 pg (27.0-34.8); MEAN CORPUSCULAR HGB CONC 33.4 g/dL (32.4-35.8); MEAN CORPUSCULAR VOLUME 87.9 fL (80-100); MEAN PLATELET VOLUME 7.2 fL (7.4-10.4); MONOCYTES # (AUTO) 0.17 x10^3/uL (0.2-0.8); MONOCYTES % (AUTO) 4 % (2-9); NEUTROPHILS # (AUTO) 2.63 x10^3/uL (1.8-6.8); NEUTROPHILS % (AUTO) 54 % (42-75); PLATELET COUNT 454 x10^3/uL (130-400); RED BLOOD COUNT 4.11 x10^6/uL (3.82-5.3); RED CELL DISTRIBUTION WIDTH 15.4 % (9.6-15.2)
[2018-06-13 05:10] LABS: ALBUMIN 2.6 g/dL (3.4-5.0); ANION GAP 7 mmol/L (5-15); CALCIUM 8.5 mg/dL (8.5-10.1); CHLORIDE 104 mmol/L (98-107); CREATININE 0.72 mg/dL (0.55-1.02)
[2018-06-13] MEDS: GABAPENTIN 100 MG CAPSULE PO SCH ×4 (05:41→19:51)
[2018-06-13] MEDS: CALCIUM CARBONATE 500 MG TABLET PO SCH (07:59)
[2018-06-13] MEDS: ACETAMINOPHEN 325 MG TABLET PO PRN ×2 (07:59→15:58)
[2018-06-13] MEDS: SENNA/DOCUSATE TABLET PO SCH (07:59)
[2018-06-13] MEDS: SULFAMETH./TRIMETHOPRIM DS 800MG/160MG TABLET PO SCH ×2 (08:00→19:51)
[2018-06-13] MEDS: PAROXETINE 20 MG TABLET PO SCH (08:00)
[2018-06-13] MEDS: SODIUM CHLORIDE FLUSH 10ML SYR IVF SCH ×2 (08:00→19:57)
[2018-06-13] MEDS: FOLIC ACID 1 MG TABLET PO SCH (08:01)
[2018-06-13] MEDS ORDERED: GABA-826 PO (08:49)
[2018-06-13] MEDS ORDERED: SULF-169 PO (08:49)
[2018-06-13 10:59] VITALS: BP 102/56
[2018-06-13 12:24] VITALS: BP 93/56
[2018-06-13] MEDS ORDERED: MAALOX/HYOSCYAMINE/LIDOCAINE 45 ML BTL PO ONE (12:30)
[2018-06-13 19:16] VITALS: BP 113/66
[2018-06-13] MEDS: TRAZODONE 100MG TABLET PO SCH (19:51)
[2018-06-14 01:14] VITALS: BP 106/49
[2018-06-14] MEDS: HEPARIN 5,000 UNITS/ML, 1ML SQ SCH ×2 (03:46→10:52)
[2018-06-14] MEDS: GABAPENTIN 100 MG CAPSULE PO SCH ×2 (05:26→10:45)
[2018-06-14 06:46] VITALS: BP 91/58
[2018-06-14] MEDS: SENNA/DOCUSATE TABLET PO SCH (08:12)
[2018-06-14] MEDS: SULFAMETH./TRIMETHOPRIM DS 800MG/160MG TABLET PO SCH (08:17)
[2018-06-14] MEDS: FOLIC ACID 1 MG TABLET PO SCH (08:17)
[2018-06-14] MEDS: CALCIUM CARBONATE 500 MG TABLET PO SCH (08:17)
[2018-06-14] MEDS: PAROXETINE 20 MG TABLET PO SCH (08:17)
[2018-06-14] MEDS: SODIUM CHLORIDE FLUSH 10ML SYR IVF SCH (08:18)
[2018-06-14] MEDS: ACETAMINOPHEN 325 MG TABLET PO PRN (10:45)
[2018-06-17] MEDS ORDERED: METHOTREXATE 2.5 MG TABLET PO SCH (18:30)
[2018-06-18] MEDS ORDERED: ADALIMUMAB 40 MG SC SCH (18:30)
== END 2018-06-14 10:57 | DRG 546 ==
LOC: ED 18:33 → 3NE 18:56
PROVIDERS: ADMIT Hospitalist; ATTEND Hospitalist
DX: M06.9 Rheumatoid arthritis, unspecified (principal); E44.0 Moderate protein-calorie malnutrition; D68.9 Coagulation defect, unspecified; L40.50 Arthropathic psoriasis, unspecified; F32.9 Major depressive disorder, single episode, unspecified; L03.011 Cellulitis of right finger; Z82.49 Family history of ischemic heart disease and other diseases of the circulatory system; Z90.710 Acquired absence of both cervix and uterus; G89.29 Other chronic pain; Z88.0 Allergy status to penicillin; Z88.6 Allergy status to analgesic agent; Z88.5 Allergy status to narcotic agent; Z91.018 Allergy to other foods; Z68.26 Body mass index [BMI] 26.0-26.9, adult
CPT/HCPCS: 36415; 80048; 80053; 82040; 85025; 90656; 99285; G0378; J1644; J8610; Q0162

== ENCOUNTER 2018-09-20 18:46 | Emergency (ER) | payer MEDICARE, MEDICAID ==
[~2018-09-20] VITALS: Ht 162.6 cm; Wt 70.8 kg
[~2018-09-20 18:46] MED LIST changes: +ADAL20KI SQ; +GABA-826 PO; +SULF-169 PO
[2018-09-20] MEDS ORDERED: ALBUTEROL/IPRATROPIUM 2.5MG/0.5MG, 3 ML NPPB ONE (19:00)
[2018-09-20 19:28] LABS: BASOPHILS # (AUTO) 0.05 x10^3/uL (0-0.1); BASOPHILS % (AUTO) 1 % (0-1); EOSINOPHILS # (AUTO) 0.04 x10^3/uL (0-0.4); EOSINOPHILS % (AUTO) 1 % (1-7); LYMPHOCYTES # (AUTO) 1.79 x10^3/uL (1-3.4); LYMPHOCYTES % (AUTO) 23 % (22-44); MD NO; MEAN CORPUSCULAR HEMOGLOBIN 31.1 pg (27.0-34.8); MEAN CORPUSCULAR HGB CONC 34.3 g/dL (32.4-35.8); MEAN CORPUSCULAR VOLUME 90.5 fL (80-100); MEAN PLATELET VOLUME 7.1 fL (7.4-10.4); MONOCYTES # (AUTO) 0.59 x10^3/uL (0.2-0.8); MONOCYTES % (AUTO) 8 % (2-9); NEUTROPHILS # (AUTO) 5.23 x10^3/uL (1.8-6.8); NEUTROPHILS % (AUTO) 68 % (42-75); PLATELET COUNT 373 x10^3/uL (130-400); RED BLOOD COUNT 4.35 x10^6/uL (3.82-5.3); RED CELL DISTRIBUTION WIDTH 16.5 % (9.6-15.2)
[2018-09-20 19:38] LABS: ALANINE AMINOTRANSFERASE 19 U/L (12-78); ALBUMIN 3.5 g/dL (3.4-5.0); ANION GAP 6 mmol/L (5-15); CALCIUM 8.9 mg/dL (8.5-10.1); CHLORIDE 106 mmol/L (98-107); CREATININE 0.74 mg/dL (0.55-1.02)
[2018-09-20 19:40] LABS: ALKALINE PHOSPHATASE 105 U/L (45-117); BILIRUBIN,TOTAL 0.3 mg/dL (0.2-1.0)
--- NOTE | 2018-09-20 20:12 | NUR ---
pt called to room from lobby
[2018-09-20] MEDS ORDERED: ALBUTEROL/IPRATROPIUM 2.5MG/0.5MG, 3 ML ONE (20:36)
[2018-09-20 21:16] VITALS: BP 113/60
== END 2018-09-20 21:46 | disposition home or self-care (01) ==
LOC: ED 20:46
DX: J00 Acute nasopharyngitis [common cold] (principal); J02.8 Acute pharyngitis due to other specified organisms; B97.89 Other viral agents as the cause of diseases classified elsewhere
CPT/HCPCS: 36415; 71046; 80053; 85025; 93005; 94640; 99284; J7512; J7620

== ENCOUNTER 2018-12-20 12:41 | Inpatient (IN) | payer MEDICARE, MEDICAID ==
[~2018-12-20] VITALS: Ht 165.1 cm; Wt 65.8 kg
[2018-12-20] MEDS ORDERED: doxycycline (12:56)
[2018-12-20] MEDS ORDERED: HYDROmorphone 1 MG/ML, 1ML INJ IVPush PRN (13:00)
[2018-12-20] MEDS ORDERED: SODIUM CHLORIDE FLUSH 10ML SYR IVF ONE (13:00)
[2018-12-20] MEDS ORDERED: ONDANSETRON 2MG/ML, 2ML IVPush ONE (13:00)
[2018-12-20] MEDS ORDERED: ONDANSETRON 2MG/ML, 2ML ONE (13:05)
[2018-12-20] MEDS ORDERED: HYDROmorphone 1 MG/ML, 1ML VIAL ONE (13:05)
[2018-12-20] MEDS ORDERED: KETOROLAC 30 MG/1 ML ONE (13:52)
--- NOTE | 2018-12-20 13:59 | NUR ---
pt laying on gurney awake & calm, responds approp to staff, NAD, comfort measures provided, caregiver at BS, call light within reach.
[2018-12-20] MEDS ORDERED: KETOROLAC 30 MG/1 ML IVPush ONE (14:00)
--- NOTE | 2018-12-20 14:23 | NUR ---
attempted to ambulate pt, pt unable to get to EOB without severe pain- ERP aware.
[2018-12-20 14:46] LABS: BASOPHILS # (AUTO) 0.02 x10^3/uL (0-0.1); BASOPHILS % (AUTO) 0 % (0-1); EOSINOPHILS # (AUTO) 0.09 x10^3/uL (0-0.4); EOSINOPHILS % (AUTO) 1 % (1-7); LYMPHOCYTES # (AUTO) 1.77 x10^3/uL (1-3.4); LYMPHOCYTES % (AUTO) 21 % (22-44); MD NO; MEAN CORPUSCULAR HEMOGLOBIN 29.2 pg (27.0-34.8); MEAN CORPUSCULAR HGB CONC 32.7 g/dL (32.4-35.8); MEAN CORPUSCULAR VOLUME 89.1 fL (80-100); MEAN PLATELET VOLUME 7.3 fL (7.4-10.4); MONOCYTES # (AUTO) 0.54 x10^3/uL (0.2-0.8); MONOCYTES % (AUTO) 6 % (2-9); NEUTROPHILS # (AUTO) 6.13 x10^3/uL (1.8-6.8); NEUTROPHILS % (AUTO) 72 % (42-75); PLATELET COUNT 389 x10^3/uL (130-400); RED BLOOD COUNT 4.56 x10^6/uL (3.82-5.3); RED CELL DISTRIBUTION WIDTH 16.4 % (9.6-15.2)
[2018-12-20 14:56] LABS: ALBUMIN 3.3 g/dL (3.4-5.0); ANION GAP 8 mmol/L (5-15); CHLORIDE 104 mmol/L (98-107); CREATININE 0.72 mg/dL (0.55-1.02)
--- NOTE | 2018-12-20 15:00 | NUR ---
pt laying on gurney awake & more comfortable, responds approp to staff, NAD at rest, comfort measures provided, caregiver at BS, call light within reach. pt to CT
--- NOTE | 2018-12-20 15:46 | NUR ---
Pt to be admitted to medical, room 358. Report called to Angela.
[2018-12-20 16:25] VITALS: BP 96/63
[2018-12-20] MEDS ORDERED: SODIUM CHLORIDE 0.9% 1,000 ML IV SCH (17:15)
[2018-12-20] MEDS ORDERED: ONDANSETRON ODT 4 MG PO PRN (17:30)
[2018-12-20] MEDS ORDERED: ONDANSETRON 2MG/ML, 2ML IVPush PRN (17:30)
[2018-12-20] MEDS ORDERED: POLYETHYLENE GLYCOL 17 GM PACKET PO PRN (17:30)
[2018-12-20] MEDS ORDERED: LABETALOL 5MG/ML, 20ML IVPush PRN (17:30)
[2018-12-20 17:49] LABS: FREE T4 (FREE THYROXINE) 1.31 ng/dL (0.76-1.46)
[2018-12-20 18:42] VITALS: BP 114/53
[2018-12-20] MEDS: GABAPENTIN 100 MG CAPSULE PO SCH (21:03)
[2018-12-20] MEDS: TRAZODONE 100MG TABLET PO SCH (21:03)
[2018-12-20] MEDS: METHOCARBAMOL 500 MG TABLET PO PRN (21:04)
[2018-12-20] MEDS ORDERED: KETOROLAC 30 MG/1 ML IVPush PRN (22:30)
[2018-12-20] MEDS: KETOROLAC 30 MG/1 ML IM/IV PRN (22:41)
[2018-12-21 01:39] VITALS: BP_SYST 154; BP_SYST 157; BP_DIAS 88
[2018-12-21 05:39] LABS: ALANINE AMINOTRANSFERASE 26 U/L (12-78); ALBUMIN 2.9 g/dL (3.4-5.0); ANION GAP 6 mmol/L (5-15); CALCIUM 7.9 mg/dL (8.5-10.1); CHLORIDE 107 mmol/L (98-107)
[2018-12-21 05:50] LABS: ALKALINE PHOSPHATASE 89 U/L (45-117); BASOPHILS # (AUTO) 0.03 x10^3/uL (0-0.1); BASOPHILS % (AUTO) 1 % (0-1); CREATININE 0.54 mg/dL (0.55-1.02); EOSINOPHILS % (AUTO) 2 % (1-7); LYMPHOCYTES # (AUTO) 1.94 x10^3/uL (1-3.4); LYMPHOCYTES % (AUTO) 31 % (22-44); MD NO; MEAN CORPUSCULAR HEMOGLOBIN 29.4 pg (27.0-34.8); MEAN CORPUSCULAR HGB CONC 32.9 g/dL (32.4-35.8); MEAN CORPUSCULAR VOLUME 89.2 fL (80-100); MONOCYTES # (AUTO) 0.55 x10^3/uL (0.2-0.8); MONOCYTES % (AUTO) 9 % (2-9); NEUTROPHILS # (AUTO) 3.62 x10^3/uL (1.8-6.8); NEUTROPHILS % (AUTO) 58 % (42-75); PLATELET COUNT 329 x10^3/uL (130-400); RED BLOOD COUNT 4.14 x10^6/uL (3.82-5.3); RED CELL DISTRIBUTION WIDTH 16.8 % (9.6-15.2); TOTAL PROTEIN 8.1 g/dL (6.4-8.2)
[2018-12-21] MEDS: KETOROLAC 30 MG/1 ML IM/IV PRN ×3 (05:54→19:48)
[2018-12-21] MEDS: GABAPENTIN 100 MG CAPSULE PO SCH ×4 (05:54→21:04)
[2018-12-21 08:22] VITALS: BP 125/74
[2018-12-21] MEDS: CALCIUM CARBONATE 1200 MG PO SCH (09:00)
[2018-12-21] MEDS: PAROXETINE 20 MG TABLET PO SCH (09:05)
[2018-12-21] MEDS: SENNA/DOCUSATE TABLET PO SCH (09:06)
[2018-12-21] MEDS: METHOCARBAMOL 500 MG TABLET PO PRN ×2 (09:54→19:58)
[2018-12-21 14:04] VITALS: BP 97/61
[2018-12-21] MEDS: ENOXAPARIN 40 MG/0.4 ML SQ SCH (16:58)
[2018-12-21 19:07] VITALS: BP 104/65
[2018-12-21] MEDS: TRAZODONE 100MG TABLET PO SCH (21:04)
[2018-12-22 01:08] VITALS: BP 98/62
[2018-12-22 05:59] LABS: ALBUMIN 2.9 g/dL (3.4-5.0); ANION GAP 5 mmol/L (5-15); CALCIUM 8.4 mg/dL (8.5-10.1); CHLORIDE 107 mmol/L (98-107); CREATININE 0.67 mg/dL (0.55-1.02)
[2018-12-22] MEDS: GABAPENTIN 100 MG CAPSULE PO SCH ×4 (06:05→19:55)
[2018-12-22 08:51] VITALS: BP 103/64
[2018-12-22] MEDS: CALCIUM CARBONATE 1200 MG PO SCH (12:33)
[2018-12-22] MEDS: PAROXETINE 20 MG TABLET PO SCH (12:35)
[2018-12-22] MEDS: SENNA/DOCUSATE TABLET PO SCH (12:36)
[2018-12-22] MEDS: METHOCARBAMOL 500 MG TABLET PO PRN (12:36)
[2018-12-22] MEDS: KETOROLAC 30 MG/1 ML IM/IV PRN (12:37)
[2018-12-22] MEDS: ENOXAPARIN 40 MG/0.4 ML SQ SCH (16:32)
[2018-12-22 16:54] VITALS: BP 94/62
[2018-12-22 19:31] VITALS: BP 101/66
[2018-12-22] MEDS: TRAZODONE 100MG TABLET PO SCH (19:55)
[2018-12-23 01:22] VITALS: BP 96/62
[2018-12-23] MEDS: KETOROLAC 30 MG/1 ML IM/IV PRN ×2 (02:11→09:40)
[2018-12-23] MEDS: GABAPENTIN 100 MG CAPSULE PO SCH ×2 (06:09→11:00)
[2018-12-23 06:55] VITALS: BP 102/65
[2018-12-23] MEDS: CALCIUM CARBONATE 1200 MG PO SCH (09:00)
[2018-12-23] MEDS: PAROXETINE 20 MG TABLET PO SCH (09:38)
[2018-12-23] MEDS: SENNA/DOCUSATE TABLET PO SCH (09:38)
[2018-12-23] MEDS ORDERED: METH500T97 PO (10:16)
[2018-12-23 13:56] VITALS: BP 95/62
== END 2018-12-23 14:35 | DRG 554 ==
LOC: ED 14:16 → EDIP 15:18 → 3NE 16:06
PROVIDERS: ADMIT Internal Medicine; ATTEND Internal Medicine
DX: M16.12 Unilateral primary osteoarthritis, left hip (principal); E44.0 Moderate protein-calorie malnutrition; F32.9 Major depressive disorder, single episode, unspecified; K57.30 Diverticulosis of large intestine without perforation or abscess without bleeding; Z96.641 Presence of right artificial hip joint; I10 Essential (primary) hypertension; M06.9 Rheumatoid arthritis, unspecified; S76.012A Strain of muscle, fascia and tendon of left hip, initial encounter; W18.11XA Fall from or off toilet without subsequent striking against object, initial encounter; M81.0 Age-related osteoporosis without current pathological fracture; Z98.1 Arthrodesis status; Y93.89 Activity, other specified; Y92.89 Other specified places as the place of occurrence of the external cause; Y99.8 Other external cause status; Z86.73 Personal history of transient ischemic attack (TIA), and cerebral infarction without residual deficits; Z79.899 Other long term (current) drug therapy; Z90.89 Acquired absence of other organs; Z90.710 Acquired absence of both cervix and uterus; Z87.891 Personal history of nicotine dependence; Z82.49 Family history of ischemic heart disease and other diseases of the circulatory system; Z68.24 Body mass index [BMI] 24.0-24.9, adult; Z88.0 Allergy status to penicillin; Z88.6 Allergy status to analgesic agent; Z88.8 Allergy status to other drugs, medicaments and biological substances
CPT/HCPCS: 36415; 80048; 80053; 82040; 83735; 84100; 84439; 84443; 85025; 96374; G0378; J1170; J1650; J1885; J2405; J7030

== ENCOUNTER 2019-03-03 20:20 | Emergency (ER) | payer MEDICARE, MEDICAID ==
[~2019-03-03] VITALS: Ht 162.6 cm; Wt 68.0 kg
[2019-03-03 22:33] VITALS: BP 108/48
== END 2019-03-03 22:52 | disposition home or self-care (01) ==
LOC: ED 22:45
DX: A09 Infectious gastroenteritis and colitis, unspecified (principal); I10 Essential (primary) hypertension; Z86.73 Personal history of transient ischemic attack (TIA), and cerebral infarction without residual deficits; Z90.49 Acquired absence of other specified parts of digestive tract; Z90.710 Acquired absence of both cervix and uterus; Z87.891 Personal history of nicotine dependence
CPT/HCPCS: 36415; 80053; 85025; 99283; Q0162

== ENCOUNTER 2019-06-11 19:43 | Emergency (ER) | payer MEDICARE, MEDICAID ==
[~2019-06-11] VITALS: Ht 162.6 cm; Wt 70.0 kg
[~2019-06-11 19:43] MED LIST changes: +ERGO500017 PO; +METH500T97 PO; +doxycycline
--- NOTE | 2019-06-11 20:05 | NUR ---
Patient vee to ER by EMS. Patient reports no pain control at [facility] because they did not carry her prescribed regular medication. Was informed by patient medication was ordered and would be available in a day. Awaiting assessment by provider.
[2019-06-11] MEDS ORDERED: OXYcodone/APAP 5/325MG TABLET ONE (20:22)
--- NOTE | 2019-06-11 20:29 | NUR ---
RN to bedside, passed medication (see eMAR.) Educated patient on urinalysis order. Patient unable to stand, patient informed of the procedure for clean catch. Patient reports unable to perform the necessary actions to perform a clean catch. Patient declining straight catheterization, midlevel provider informed, aware urine will not be sterile. Awaiting for patient to inform RN of need for bed escobedo.
[2019-06-11] MEDS ORDERED: OXYcodone/APAP 5/325MG TABLET PO ONE (20:30)
[2019-06-11 20:42] LABS: ALANINE AMINOTRANSFERASE 20 U/L (12-78); ALBUMIN 2.9 g/dL (3.4-5.0); ANION GAP 4 mmol/L (5-15); CALCIUM 8.9 mg/dL (8.5-10.1); CHLORIDE 103 mmol/L (98-107)
[2019-06-11 20:45] LABS: ALKALINE PHOSPHATASE 94 U/L (45-117); BILIRUBIN,TOTAL 0.7 mg/dL (0.2-1.0); TOTAL PROTEIN 7.9 g/dL (6.4-8.2)
[2019-06-11 20:51] LABS: BASOPHILS # (AUTO) 0.03 x10^3/uL (0-0.1); BASOPHILS % (AUTO) 0 % (0-1); EOSINOPHILS # (AUTO) 0.25 x10^3/uL (0-0.4); EOSINOPHILS % (AUTO) 3 % (1-7); LYMPHOCYTES # (AUTO) 1.29 x10^3/uL (1-3.4); LYMPHOCYTES % (AUTO) 14 % (22-44); MD NO; MEAN CORPUSCULAR HEMOGLOBIN 30.5 pg (27.0-34.8); MEAN CORPUSCULAR HGB CONC 33.1 g/dL (32.4-35.8); MEAN CORPUSCULAR VOLUME 92.3 fL (80-100); MEAN PLATELET VOLUME 6.7 fL (7.4-10.4); MONOCYTES # (AUTO) 0.54 x10^3/uL (0.2-0.8); MONOCYTES % (AUTO) 6 % (2-9); NEUTROPHILS # (AUTO) 7.44 x10^3/uL (1.8-6.8); NEUTROPHILS % (AUTO) 78 % (42-75); PLATELET COUNT 414 x10^3/uL (130-400); RED BLOOD COUNT 4.28 x10^6/uL (3.82-5.3); RED CELL DISTRIBUTION WIDTH 14.9 % (9.6-15.2)
[2019-06-11] MEDS ORDERED: SODIUM CHLORIDE 0.9% 1,000ML IVBOLUS ONE (21:00)
[2019-06-11 22:40] LABS: MICROSCOPIC NOT IND
[2019-06-11 22:50] LABS: CULTURE INDICATED? NO
--- NOTE | 2019-06-12 00:10 | NUR ---
CALLED [facility]. THEIR COMPUTERS ARE DOWN AND THEY CANNOT APPROVE ANY TRANSPORTS AT THIS TIME. THEY REQUEST WE CALL BACK IN 15 MINUTES.
--- NOTE | 2019-06-12 01:07 | NUR ---
TRANSPORT ARRANGED THROUGH [facility]
--- NOTE | 2019-06-12 01:29 | NUR ---
SCM CALLED BACK AND STATES THEY HAVE CALLED [facility] AND GIVEN CONFIRMATION FOR THE TRANSPORT. [facility] STATES THEY HAVE NOT RECEIVED THE INFORMATION FROM US. PAPERWORK REFAXED TO [facility].
--- NOTE | 2019-06-12 01:40 | NUR ---
[facility] WAS CALLED. ETA [phone]
[2019-06-12] MEDS ORDERED: OXYcodone/APAP 5/325MG TABLET ONE (02:22)
[2019-06-12 02:25] VITALS: BP 140/68
--- NOTE | 2019-06-12 02:25 | NUR ---
STILL AWAITING [facility] ARRIVAL. PT STATES PAIN PILL HAS WORN OFF. PA CONSULTED. PT MEDICATED PER SEP. PT GIVEN WATER PER REQUEST. PT DENIES FURTHER NEEDS AT THIS TIME.
[2019-06-12] MEDS ORDERED: OXYcodone/APAP 5/325MG TABLET PO ONE (02:30)
--- NOTE | 2019-06-12 04:04 | NUR ---
EMS to bedside, patient had bowel movement, patient cleaned up. Replaced diaper and patient transferred, report received by EMS and report already given to receiving RN and facility
== END 2019-06-12 04:05 | disposition short-term general hospital (02) ==
LOC: ED 23:09
DX: S22.41XA Multiple fractures of ribs, right side, initial encounter for closed fracture (principal); E86.0 Dehydration; N28.9 Disorder of kidney and ureter, unspecified; I10 Essential (primary) hypertension; Z86.73 Personal history of transient ischemic attack (TIA), and cerebral infarction without residual deficits; M06.9 Rheumatoid arthritis, unspecified; Z90.89 Acquired absence of other organs; Z90.49 Acquired absence of other specified parts of digestive tract; Z90.710 Acquired absence of both cervix and uterus; W18.30XA Fall on same level, unspecified, initial encounter; Y93.89 Activity, other specified; Y92.89 Other specified places as the place of occurrence of the external cause; Y99.8 Other external cause status
CPT/HCPCS: 36415; 80053; 81003; 85025; 96360; 96361; 99285; J7030

== ENCOUNTER 2019-06-13 05:40 | Emergency (ER) | payer MEDICARE, MEDICAID ==
[~2019-06-13] VITALS: Ht 167.6 cm; Wt 88.0 kg
[2019-06-13 05:50] VITALS: BP 180/151
--- NOTE | 2019-06-13 05:52 | NUR ---
EPI DRIP INITIATED AT THIS TIME.
--- NOTE | 2019-06-13 05:52 | NUR ---
CPR IN PROGRESS; SEE CODE SHEET.
--- NOTE | 2019-06-13 05:55 | NUR ---
ATTEMPTED TO CONTACT NEXT OF [facility]IN. NO ANSWER AT THIS TIME.
--- NOTE | 2019-06-13 05:58 | NUR ---
TIME OF CALLED BY DR. DE GUZMAN [phone].
[2019-06-13] MEDS ORDERED: EPINEPHRINE 1 MG in SODIUM CHLORIDE 0.9% 249 ML IV PRN (06:04)
--- NOTE | 2019-06-13 06:08 | NUR ---
2ND ATTEMPT TO CONTACT [facility]; UNABLE TO REACH.
--- NOTE | 2019-06-13 06:11 | NUR ---
weigher and charger: called addy at [facility], they will come to collect body currently.
[2019-06-13] MEDS ORDERED: EPINEPHRINE 1 MG/ML, 1ML IVPush ONE ×2 (06:30)
[2019-06-13] MEDS ORDERED: SODIUM BICARB 8.4%, 50ML SYRINGE IVPush ONE (06:30)
[2019-06-13] MEDS ORDERED: CALCIUM CHLORIDE 13.6 MEQ in SODIUM CHLORIDE 0.9% 100 ML IV ONE (06:30)
--- NOTE | 2019-06-13 06:39 | NUR ---
DR. DE GUZMAN WAS ABLE TO REACH NEXT OF [facility] TO INFORM OF .
--- NOTE | 2019-06-13 06:55 | NUR ---
[employer] CLERK'S OFFICE STAFF TOÑO HERE TO TAKE PICUTURES. REPORT TO ALKA TAM.
--- NOTE | 2019-06-13 07:22 | NUR ---
SB[facility] HAND-OFF REPORT RECEIVED FROM ALKA AVERY. ASSUMING CARE OF BODY. TOÑO YAN, AT BEDSIDE. REMOVED ET TUBE QUINTANILLA AND CUT ET TUBE TO MAKE FOR BETTER PRESENTATION FOR FAMILY, WHO IS ON THE WAY HERE, APPROVED BY TOÑO FROM CENTER CUSTOMER SERVICE ASSOCIATE'S OFFICE.
[2019-06-13] MEDS ORDERED: CALCIUM CHLORIDE 10%, 10ML SYR ONE (08:00)
[2019-06-13] MEDS ORDERED: SODIUM BICARBONATE 1 MEQ/ML, 50ML VIAL ONE (08:00)
[2019-06-13] MEDS ORDERED: EPINEPHRINE 1 MG/ML, 1ML ONE (08:00)
--- NOTE | 2019-06-13 09:23 | NUR ---
MATT LEFT ON October'S PHONE REQUESTING A CALL BACK TO WHAT TIME SHE WILL BE HERE TO SEE THE PATIENT. [phone]
== END 2019-06-13 11:33 | disposition expired ==
LOC: ED 05:51
DX: I46.9 Cardiac arrest, cause unspecified (principal)
CPT/HCPCS: 92950; 99285; J0171; J7050